=== PATIENT | female | born 1955 | race Caucasian/White ===

== ENCOUNTER 2017-11-25 16:18 | Emergency (ER) | payer OTHER ==
[~2017-11-25] VITALS: Ht 157.5 cm; Wt 63.5 kg
[2017-11-25 16:52] LABS: ABSOLUTE BASOPHIL COUNT 0.1 /CUMM (0.0-0.2); ABSOLUTE EOSINOPHIL COUNT 0.1 /CUMM (0.0-0.7); ABSOLUTE GRANULOCYTE CT 4.2 /CUMM (1.4-6.5); ABSOLUTE LYMPH COUNT 2.7 /CUMM (1.2-3.4); ABSOLUTE MONOCYTE COUNT 0.6 /CUMM (0.10-0.60); BASOPHIL % 0.9 % (0.0-2.0); EOSINOPHIL % 1.1 % (0-5); GRANULOCYTE % 54.7 % (42.2-75.2); MEAN CORPUSCULAR HGB 33.8 PG (27.0-31.0); MEAN CORPUSCULAR HGB CONC 33.7 G/DL (33.0-37.0); MEAN CORPUSCULAR VOLUME 100.4 FL (81.0-99.0); MEAN PLATELET VOLUME 6.6 FL (7.4-10.4); PLATELET COUNT 200 /CUMM (130-400); RBC DISTRIBUTION WIDTH 14.3 % (11.5-14.5); RED BLOOD CELL CT 4.29 /CUMM (4.20-5.40); WHITE BLOOD CELL COUNT 7.6 /CUMM (4.8-10.8)
[2017-11-25] MEDS ORDERED: HYDROCHLOROTHIA25 M1 PO (18:08)
[2017-11-25] MEDS ORDERED: TRAZODONE HCL50 M1 PO (18:09)
[2017-11-25] MEDS ORDERED: CITALOPRAM HBR20 MG PO (18:09)
--- NOTE | 2017-11-25 19:19 | ED GENERAL ADULT ---
History of Present Illness General Chief Complaint: ETOH/Drug Related Complaint Stated Complaint: "DETOX" Source: patient, family Exam Limitations: no limitations Vital Signs & Intake/Output Vital Signs & Intake/Output Vital Signs Date Time Temp Pulse Resp B/P B/P Pulse O2 O2 Flow FiO2 Mean Ox Delivery Rate 08/06 0934 99.7 60 20 147/80 08/06 0934 99.7 60 20 147/80 96 Room Air 08/06 0812 99.2 65 20 150/88 08/06 0809 99.2 65 20 150/88 98 Room Air 08/06 0735 99.2 80 20 180/90 08/06 0733 99.2 80 20 180/90 95 Room Air 08/06 0610 96.7 73 18 145/88 08/06 0610 96.7 73 18 145/88 94 Room Air 08/06 0502 96.3 76 20 122/82 08/06 0502 96.3 76 20 122/82 94 Room Air 08/06 0301 96.5 70 20 125/79 08/06 0301 96.5 70 20 125/79 95 Room Air 08/06 0131 96.3 68 18 128/78 08/06 0131 96.3 68 18 128/78 92 Room Air 08/05 2316 98.6 67 18 109/66 08/05 2314 98.6 67 18 109/66 95 Room Air 08/05 2100 98.4 86 18 135/79 08/05 2057 98.4 86 18 135/79 99 08/05 1846 98.9 80 18 117/71 96 08/05 1826 Room Air Room Air 08/05 1626 97.6 82 16 174/96 96 Room Air ED Intake and Output 08/ 0000 08/05 1200 Intake Total 1000 Output Total Balance 1000 Intake, IV 1000 Patient 140 lb Weight Weight Reported by Patient Measurement Method Allergies Coded Allergies: No Known Allergies (11/25/17) Triage Note: PT IS REQUESTING ETOH DETOX. REPORTS DRINKING A PINT OF VODKA DAILY. LAST DRINK WAS APPROXIMATELY AT 2PM. DENIED SEIZURES WITH DETOX. Triage Nurses Notes Reviewed? yes HPI: Pleasant 62-year-old female who presents to the emergency department at the request of her family after being found drinking today. She tells me that she retired about a year ago from [employer] and since then his vital time on her hands. She had previously had a problem with drinking in the past but was sober for a few years. She subsequently started drinking again after her halfway and now has been drinking 1 pint per day for the last year. Her family is very concerned and she has listened to their concerns and come in today for detox voluntarily with her . She denies any abdominal pain nausea or vomiting she denies any fevers chills chest pain or shortness of breath she denies any headache numbness tingling or weakness. She denies any bruising or bleeding episodes no heat cold intolerance. (Alcira Castillo PA-C) Reconcile Medications Chlordiazepoxide HCl 25 MG CAPSULE 0 PO SEE ADMIN CRITERIA PRN alcohol withdrawal 1-2 cap QID x 2D, 1-2 cap TID x 2D, 1-2 cap BID x 2D, 1-2 cap QD x2D Citalopram Hydrobromide (Citalopram HBr) 20 MG TABLET 1.5 TAB PO DAILY MENTAL HEALTH (Reported) Hydrochlorothiazide 25 MG TABLET 1 TAB PO DAILY BP (Reported) Trazodone HCl 50 MG TABLET 1 TAB PO PRN MENTAL HEALTH/SLEEP (Reported) (Sandrine WONG,David Oseguera) Past History Travel History Traveled to [place] past 21 day No Medical History Any Pertinent Medical History? see below for history Cardiovascular: hypertension Surgical History Surgical History: none Psychosocial History What is your primary language Bulgarian Tobacco Use: Never used Family History Hx Contributory? Yes (Alcira Castillo PA-C) Review of Systems Review of Systems Constitutional: Denies: see HPI. EENTM: Denies: blurred vision, double vision, visual changes. Respiratory: Denies: cough, hemoptysis. Cardiovascular: Denies: chest pain, edema, orthopena. GI: Denies: abdominal pain, bloating, constipation. Genitourinary: Denies: no symptoms. Musculoskeletal: Denies: no symptoms, see HPI. Skin: Denies: no symptoms. Neurological/Psychological: Denies: no symptoms. Hematologic/Endocrine: Denies: no symptoms. Immunologic/Allergic: Denies: no symptoms. All Other Systems: Reviewed and Negative (Alcira Castillo PA-C) Physical Exam Physical Exam General Appearance: well developed/nourished, no apparent distress, alert, awake Head: atraumatic, normal appearance Eyes: Bilateral: normal appearance, PERRL, EOMI. Ears, Nose, Throat: normal pharynx, normal ENT inspection Neck: normal inspection, supple, full range of motion Respiratory: normal breath sounds, chest non-tender, no respiratory distress Cardiovascular: regular rate/rhythm Gastrointestinal: normal bowel sounds, soft, non-tender Rectal: deferred Extremities: normal inspection, normal capillary refill, normal range of motion, no edema Neurologic/Psych: no motor/sensory deficits, awake, alert, oriented x 3 Skin: intact, normal color Core Measures ACS in differential dx? No CVA/TIA Diagnosis: No Sepsis Present: No Sepsis Focused Exam Completed? No (Jonathan FERRELL,Alcira) Progress Differential Diagnoses I considered the following diagnoses in my evaluation of the patient: Alcohol intoxication with alcohol use disorder Patient voluntarily comes in today with her to seek treatment. She has alcohol level currently greater than 200. She is not had any history of seizure in the past for withdrawal in the past. She did have a history of 2 years sobriety. She drinks approximately 1 pint of vodka a day. Her last drink was around 2 PM on 11/25/2017. Labs are ordered and resulted. Patient on IV fluids now. We'll continue to monitor hypertension. Recheck alcohol level as appropriate. Plan of Care: Orders Procedure Date/time Status Regular Diet 11/26 B Active Add-on Test (ER Only) 11/25 1818 Active Add-on Test (ER Only) 11/25 1743 Active MAGNESIUM 11/25 1644 Complete VITAMIN B12 11/25 1644 Complete CIWA 11/25 1624 Active URINE DRUG SCREEN FOR ER ONLY 11/25 1624 Complete LIPASE 11/25 1624 Complete ETHANOL 11/25 1624 Complete COMPREHENSIVE METABOLIC PANEL 11/25 1624 Complete CBC WITHOUT DIFFERENTIAL 11/25 1624 Complete Current Medications Sig/En Start time Last Medication Dose Stop Time Status Admin Hydrochlorothiazide 25 MG DAILY 11/26 899 UNVr 11/26 (Hydrodiuril) 0812 Lisinopril 20 MG DAILY 11/26 899 UNVr 11/26 (Prinivil) 0812 Gabapentin 300 MG Q8 11/26 0744 UNVr 11/26 (Neurontin) 0812 Trazodone HCl 50 MG QPM PRN 11/25 2100 AC (Desyrel) Laboratory Tests 11/25/17 1644: Anion Gap 9, Estimated GFR > 60, BUN/Creatinine Ratio 21.7, Glucose 84, Calcium 9.0, Magnesium 1.6, Total Bilirubin 0.9, AST 143 H, ALT 59 H, Alkaline Phosphatase 116, Total Protein 7.7, Albumin 4.1, Globulin 3.6, Albumin/Globulin Ratio 1.1, Lipase 108, Vitamin B12 260, CBC w Diff NO MAN DIFF REQ, RBC 4.29, MCV 100.4 H, MCH 33.8 H, MCHC 33.7, RDW 14.3, MPV 6.6 L, Gran % 54.7, Lymphocytes % 35.6, Monocytes % 7.7, Eosinophils % 1.1, Basophils % 0.9, Absolute Granulocytes 4.2, Absolute Lymphocytes 2.7, Absolute Monocytes 0.6, Absolute Eosinophils 0.1, Absolute Basophils 0.1, Serum Alcohol 272.0 11/25/17 1630: Urine Opiates Screen < 100, Methadone Screen 57, Barbiturate Screen < 60, Ur Phencyclidine Scrn < 6.00, Amphetamines Screen < 100, U Benzodiazepines Scrn < 85, Urine Cocaine Screen < 50, Urine Cannabis Screen < 5.00 Initial ED EKG: none Hand-Off Endorsed To: David Deluca MD Comments: hAND OFF DISCUSSED WITH dR. Deluca (Alcira Castillo PA-C) Hand-Off Endorsed To: Edison Charles MD Endorsed Time: 0700 Pending: consult (Sandrine WONG,David Oseguera) Comments: Spouse obtaining placement at [facility] (Edison Charles MD) Departure Departure Condition: Stable Clinical Impression Primary Impression: Alcohol use disorder Referrals: Guillermo Maradiaga MD (PCP/Family) (Alcira Castillo PA-C) Departure Prescriptions: Current Visit Scripts Chlordiazepoxide HCl 0 PO SEE ADMIN CRITERIA PRN alcohol withdrawal #40 CAP 1-2 cap QID x 2D, 1-2 cap TID x 2D, 1-2 cap BID x 2D, 1-2 cap QD x2D PA/VAULT MANAGER Co-Sign Statement Statement: ED Attending supervision documentation- [X] I saw and evaluated the patient. I have also reviewed all the pertinent lab results and diagnostic results. I agree with the findings and the plan of care as documented in the PA's/VAULT MANAGER's documentation. [X] I have reviewed the ED Record and agree with the PA's/VAULT MANAGER's documentation. [] Additions or exceptions (if any) to the PAs/VAULT MANAGER's note and plan are summarized below: [] (Sandrine WONG,David Oseguera) Departure Time of Disposition: 7 Disposition: HOME OR SELF CARE Departure Forms: General Discharge Information (Araceli WONG,Edison) Critical Care Note Critical Care Note Critical Care Time: non-applicable (Jonathan FERRELL,Alcira)
[2017-11-26 09:34] VITALS: BP 147/80
[2017-11-26] MEDS ORDERED: CHLORDIAZEPOXID25 M3 PO (10:19)
== END 2017-11-26 10:25 ==
LOC: ERH 16:18
PROVIDERS: Physician Assistant
DX: F10.10 Alcohol abuse, uncomplicated (principal); I10 Essential (primary) hypertension
CPT/HCPCS: 80307; 96360; G0480